=== PATIENT | female | born 1965 | race Caucasian/White ===

== ENCOUNTER 2017-08-09 10:23 | Emergency (ER) | payer OTHER ==
[~2017-08-09] VITALS: Ht 157.5 cm; Wt 88.5 kg
[~2017-08-09 10:23] MED LIST: ALBU90OI6 INH; ALPR.5 PO; AMOX500 PO; ANTACID; ARIP10 PO; ATOR40TA; Ativan1 MG PO; BUPR150ER PO; BUSP10 PO; CEPH500 PO; CIPHYDOTSU OT; CIPR250 PO; CIPR500 PO; CLON.5 PO; CLON1 PO; CLOT1TC TOP; CYCL10 PO; Cipro500 MG PO; Cyclobenzaprine5 MG PO; DICL250 PO; DOXY100 PO; EPINEPHRIN0.3 MG/0.3; ESCI10 PO; ESCI5 PO; FLUC150A PO; FURO20 PO; GABA300 PO; HYDACE10B; HYDACE25S PR; HYDACE5 PO; HYDACE5325 PO; HYDCHL50; HYDCOR2.5C PR; HYDMOR2 PO; HYOS.125 SL; IBUP600 PO; LEVSOD100; LEVSOD100 PO; LEVSOD125 PO; LITH300C PO; LORA1 PO; Lamictal200 MG PO; METH10 PO; Mobic15 MG PO; NAPR220; NAPR500 PO; NEOPOLHCSU OT; Norco 5-325 Ta1 EACH PO; OMEP20ER PO; OXYACE5T PO; OXYC10TA19 PO; PARO20 PO; PERM5TC TOP; PHENA200 PO; POTASSIUM SUPPLEMENT; POTCHL10ER PO; PRAHYD1AE TOP; PROM25; PROM25 PO; PSEU120ER PO; Pantoprazole So40 MG PO; Percocet 5-3251 EACH PO; RANI150; RANI150 PO; RXHYD5325 PO; RXHYDMOR2 PO; RXIBUP800 PO; RXOXYACE PO; STOOL SOFTNER; SULTRIDS PO; TRAZ50 PO; Ultram50 MG PO; Valium5 MG PO; [UNRECOGNIZED DRUG - REMARK]
[2017-08-09 11:06] LABS: BASOPHILS ABSOLUTE AUTO 0.08 K/mm3 (0.00-0.23); BASOPHILS PERCENT AUTO 1 % (0-2); EOSINOPHILS ABSOLUTE AUTO 0.21 K/mm3 (0.00-0.68); EOSINOPHILS PERCENT AUTO 3 % (0-6); Hematocrit 41.8 % (33.0-51.0); Hemoglobin 13.9 g/dL (11.5-16.0); IMMATURE GRAN ABSOLUTE AUTO 0.01 K/mm3 (0.00-0.10); IMMATURE GRAN PERCENT AUTO 0 % (0-1); LYMPHOCYTES ABSOLUTE AUTO 2.83 K/mm3 (0.84-5.20); LYMPHOCYTES PERCENT AUTO 40 % (21-46); MONOCYTES ABSOLUTE AUTO 0.51 K/mm3 (0.16-1.47); MONOCYTES PERCENT AUTO 7 % (4-13); Mean Corpuscular HGB 33.2 pg (26.0-34.0); Mean Corpuscular HGB Conc 33.3 g/dL (31.5-36.5); Mean Corpuscular Volume 100 fL (80-100); Mean Platelet Volume 10.3 fL (9.1-12.4); NEUTROPHILS ABSOLUTE AUTO 3.53 K/mm3 (1.96-9.15); NEUTROPHILS PERCENT AUTO 49 % (41-73); Platelet Count 242 K/mm3 (150-400); RDW Coefficient Variation 12.5 % (11.7-14.2); RDW Standard Deviation 46.1 fL (35.1-46.3); Red Blood Cell Count 4.19 M/mm3 (3.80-5.20); White Blood Cell Count 7.17 K/mm3 (4.00-11.30)
[2017-08-09 11:25] LABS: Alanine Aminotransfer (ALT/SGP 39 U/L (12-78); Albumin, Blood 3.9 g/dL (3.4-5.0); Albumin/Globulin Ratio 1.1 (0.8-1.8); Alk Phos 105 U/L (50-136); Anion Gap 8 mmol/L (6-16); Aspartate Aminotrans (AST/SGOT 24 U/L (12-37); Bilirubin, Total 0.3 mg/dL (0.1-1.0); Blood Urea Nitrogen 16 mg/dL (8-24); Bun/Creatinine Ratio 19.3 (12.0-20.0); CO2, Blood 26 mmol/L (21-32); Calcium, Blood 9.1 mg/dL (8.5-10.1); Chloride, Blood 108 mmol/L (98-108); Creatinine, Blood 0.83 mg/dL (0.40-1.00); Globulin, Blood 3.5 g/dL (2.2-4.0); Glomerular Filtration Rate >60 (60-); Glucose, Blood 93 mg/dL (70-99); Potassium, Blood 4.1 mmol/L (3.5-5.5); Sodium, Blood 142 mmol/L (136-145); Total Protein, Blood 7.4 g/dL (6.4-8.2); Troponin I <0.015 ng/mL (0.000-0.040)
[2017-08-09] MEDS ORDERED: SUCR1 PO (12:37)
== END 2017-08-09 12:46 | disposition home or self-care (01) ==
LOC: ER 10:23
PROVIDERS: Emergency Medicine
DX: R10.13 Epigastric pain (principal); Z87.11 Personal history of peptic ulcer disease; F32.9 Major depressive disorder, single episode, unspecified; F41.9 Anxiety disorder, unspecified; I50.9 Heart failure, unspecified; F17.210 Nicotine dependence, cigarettes, uncomplicated; Z88.2 Allergy status to sulfonamides; Z88.8 Allergy status to other drugs, medicaments and biological substances; Z91.038 Other insect allergy status; Z88.5 Allergy status to narcotic agent; Z79.899 Other long term (current) drug therapy; Z90.49 Acquired absence of other specified parts of digestive tract
CPT/HCPCS: 36415; 71046; 80053; 83690; 84484; 85025; 93005; 93010; 99284

== ENCOUNTER → 2017-10-31 | Outpatient (CLI) | payer OTHER ==
[~2017-10-31] MED LIST changes: +SUCR1 PO
[2017-10-31 18:53] LABS: U Amphetamine Screen Not Detected; U Barbituate Screen Not Detected; U Benzodiazapine Screen Not Detected; U Buprenorphine Screen Not Detected; U Cannabinoids Screen Not Detected; U Cocaine Screen Not Detected; U Methadone Screen Not Detected; U Methamphetamine Screen Not Detected; U Opiates Screen Not Detected; U Oxycodone Screen Not Detected; U Phencyclidine Screen Not Detected; U Propoxyphene Screen Not Detected
== END ==
LOC: LAB 16:00 → LAB SHORT 16:00
PROVIDERS: Psychiatry & Neurology Psychiatry
DX: Z51.81 Encounter for therapeutic drug level monitoring (principal); Z79.899 Other long term (current) drug therapy

== ENCOUNTER 2019-02-18 20:07 | Emergency (ER) | payer OTHER ==
[~2019-02-18] VITALS: Ht 157.5 cm; Wt 90.7 kg
[2019-02-18 21:22] LABS: Source, Urine Clean Catch
[2019-02-18 21:25] LABS: Blood, Urine 5+ (Neg); Glucose Qualitative, Urine Neg (Neg); Ketones, Urine 1+ (Neg); Leukocyte Esterase, Urine 1+ (Neg); Nitrite, Urine Neg (Neg); Protein, Urine 2+ (Neg); Specific Gravity, Urine 1.025 (1.003-1.022); Urobilinogen, Urine 2+ (Normal)
[2019-02-18 21:41] LABS: Appearance, Urine Cloudy (Clear); Bilirubin, Urine 1+ (Neg); Color, Urine Yellow (P-Yellow)
[2019-02-18 21:43] LABS: Bacteria Few /hpf; Calcium Oxalate Crystals Mod /hpf; Red Blood Cells, Urine TNTC /hpf (0-2); Squamous Epithelial Cells Few /hpf (Few)
[2019-02-18 23:17] LABS: BASOPHILS PERCENT AUTO 1 % (0-2); EOSINOPHILS PERCENT AUTO 3 % (0-6); Hematocrit 42.5 % (33.0-51.0); Hemoglobin 14.2 g/dL (11.5-16.0); IMMATURE GRAN ABSOLUTE AUTO 0.02 K/mm3 (0.00-0.10); IMMATURE GRAN PERCENT AUTO 0 % (0-1); LYMPHOCYTES ABSOLUTE AUTO 3.37 K/mm3 (0.84-5.20); LYMPHOCYTES PERCENT AUTO 44 % (21-46); MONOCYTES ABSOLUTE AUTO 0.55 K/mm3 (0.16-1.47); MONOCYTES PERCENT AUTO 7 % (4-13); Mean Corpuscular HGB 33.8 pg (26.0-34.0); Mean Corpuscular HGB Conc 33.4 g/dL (31.5-36.5); Mean Corpuscular Volume 101 fL (80-100); NEUTROPHILS ABSOLUTE AUTO 3.41 K/mm3 (1.96-9.15); NEUTROPHILS PERCENT AUTO 45 % (41-73); Platelet Count 230 K/mm3 (150-400); RDW Coefficient Variation 13.6 % (11.7-14.2); RDW Standard Deviation 51.1 fL (35.1-46.3); White Blood Cell Count 7.65 K/mm3 (4.00-11.30)
[2019-02-18 23:37] LABS: Alanine Aminotransfer (ALT/SGP 28 U/L (12-78); Albumin, Blood 4.2 g/dL (3.4-5.0); Albumin/Globulin Ratio 1.3 (0.8-1.8); Alk Phos 128 U/L (50-136); Anion Gap 9 mmol/L (6-16); Aspartate Aminotrans (AST/SGOT 16 U/L (12-37); Bilirubin, Total 0.3 mg/dL (0.1-1.0); Blood Urea Nitrogen 20 mg/dL (8-24); CO2, Blood 27 mmol/L (21-32); Calcium, Blood 9.3 mg/dL (8.5-10.1); Chloride, Blood 106 mmol/L (98-108); Creatinine, Blood 0.95 mg/dL (0.40-1.00); Globulin, Blood 3.2 g/dL (2.2-4.0); Glomerular Filtration Rate >60 (60-); Glucose, Blood 88 mg/dL (70-99); Potassium, Blood 3.6 mmol/L (3.5-5.5); Sodium, Blood 142 mmol/L (136-145); Total Protein, Blood 7.4 g/dL (6.4-8.2)
== END 2019-02-19 00:03 | disposition home or self-care (01) ==
LOC: ER 20:07
PROVIDERS: Emergency Medicine; Physician Assistant
DX: N20.0 Calculus of kidney (principal); N02.9 Recurrent and persistent hematuria with unspecified morphologic changes; F41.9 Anxiety disorder, unspecified; F32.9 Major depressive disorder, single episode, unspecified; F17.210 Nicotine dependence, cigarettes, uncomplicated; I50.9 Heart failure, unspecified; Z88.2 Allergy status to sulfonamides; Z79.899 Other long term (current) drug therapy
CPT/HCPCS: 36415; 74176; 80053; 81001; 85025; 87086; 99284-25

== ENCOUNTER 2019-06-14 15:36 | Emergency (ER) | payer OTHER ==
[~2019-06-14] VITALS: Ht 157.5 cm; Wt 93.4 kg
[2019-06-14 16:17] LABS: BASOPHILS ABSOLUTE AUTO 0.08 K/mm3 (0.00-0.23); BASOPHILS PERCENT AUTO 1 % (0-2); EOSINOPHILS ABSOLUTE AUTO 0.24 K/mm3 (0.00-0.68); EOSINOPHILS PERCENT AUTO 3 % (0-6); Hematocrit 39.9 % (33.0-51.0); Hemoglobin 13.5 g/dL (11.5-16.0); IMMATURE GRAN ABSOLUTE AUTO 0.02 K/mm3 (0.00-0.10); IMMATURE GRAN PERCENT AUTO 0 % (0-1); LYMPHOCYTES ABSOLUTE AUTO 3.04 K/mm3 (0.84-5.20); LYMPHOCYTES PERCENT AUTO 34 % (21-46); MONOCYTES ABSOLUTE AUTO 0.52 K/mm3 (0.16-1.47); MONOCYTES PERCENT AUTO 6 % (4-13); Mean Corpuscular HGB 35.3 pg (26.0-34.0); Mean Corpuscular HGB Conc 33.8 g/dL (31.5-36.5); Mean Corpuscular Volume 105 fL (80-100); Mean Platelet Volume 10.3 fL (9.1-12.4); NEUTROPHILS ABSOLUTE AUTO 5.13 K/mm3 (1.96-9.15); NEUTROPHILS PERCENT AUTO 57 % (41-73); Platelet Count 246 K/mm3 (150-400); RDW Coefficient Variation 12.4 % (11.7-14.2); RDW Standard Deviation 47.8 fL (35.1-46.3); Red Blood Cell Count 3.82 M/mm3 (3.80-5.20); White Blood Cell Count 9.03 K/mm3 (4.00-11.30)
[2019-06-14 16:45] LABS: Alanine Aminotransfer (ALT/SGP 32 U/L (12-78); Albumin, Blood 4.2 g/dL (3.4-5.0); Albumin/Globulin Ratio 1.2 (0.8-1.8); Alk Phos 125 U/L (50-136); Anion Gap 3 mmol/L (6-16); Aspartate Aminotrans (AST/SGOT 13 U/L (12-37); Bilirubin, Total 0.4 mg/dL (0.1-1.0); Blood Urea Nitrogen 20 mg/dL (8-24); Bun/Creatinine Ratio 16.8 (12.0-20.0); CO2, Blood 27 mmol/L (21-32); Calcium, Blood 9.5 mg/dL (8.5-10.1); Chloride, Blood 109 mmol/L (98-108); Creatinine, Blood 1.19 mg/dL (0.40-1.00); Globulin, Blood 3.4 g/dL (2.2-4.0); Glomerular Filtration Rate 50 (60-); Glucose, Blood 109 mg/dL (70-99); Potassium, Blood 3.4 mmol/L (3.5-5.5); Sodium, Blood 139 mmol/L (136-145); Total Protein, Blood 7.6 g/dL (6.4-8.2); Troponin I <0.015 ng/mL (0.000-0.040)
== END 2019-06-14 18:02 | disposition home or self-care (01) ==
LOC: ER 15:36
PROVIDERS: Physician Assistant
DX: R07.9 Chest pain, unspecified (principal); Z88.2 Allergy status to sulfonamides; Z91.030 Bee allergy status; Z88.8 Allergy status to other drugs, medicaments and biological substances; Z88.6 Allergy status to analgesic agent; Z79.899 Other long term (current) drug therapy; F32.9 Major depressive disorder, single episode, unspecified; D64.9 Anemia, unspecified; I50.9 Heart failure, unspecified; F17.210 Nicotine dependence, cigarettes, uncomplicated
CPT/HCPCS: 36415; 71046; 80053; 83880; 84484; 85025; 93005; 93010; 99284-25

== ENCOUNTER 2019-09-24 09:05 | Emergency (ER) | payer OTHER ==
[~2019-09-24] VITALS: Ht 157.5 cm; Wt 93.4 kg
[~2019-09-24 09:05] MED LIST changes: +LAMO100 PO; -Lamictal200 MG PO
[2019-09-24] MEDS ORDERED: Hydrocodone-Ap1 EA20 PO (09:27)
[2019-09-24] MEDS ORDERED: OMEP20ER PO (09:28)
[2019-09-24] MEDS ORDERED: PROM25 (09:28)
[2019-09-24] MEDS ORDERED: ATOR20 PO (09:28)
[2019-09-24] MEDS ORDERED: BUSP10 PO (09:29)
[2019-09-24] MEDS ORDERED: Voltaren100 GM TOP (10:10)
== END 2019-09-24 10:24 | disposition home or self-care (01) ==
LOC: ER 09:05
DX: M25.562 Pain in left knee (principal); F32.9 Major depressive disorder, single episode, unspecified; F41.9 Anxiety disorder, unspecified; D64.9 Anemia, unspecified; I50.9 Heart failure, unspecified; J44.9 Chronic obstructive pulmonary disease, unspecified; M17.0 Bilateral primary osteoarthritis of knee; F17.210 Nicotine dependence, cigarettes, uncomplicated; Z88.2 Allergy status to sulfonamides; Z88.8 Allergy status to other drugs, medicaments and biological substances; Z91.030 Bee allergy status; Z79.51 Long term (current) use of inhaled steroids; Z79.899 Other long term (current) drug therapy
CPT/HCPCS: 93971; 99283-25

== ENCOUNTER 2020-02-20 09:04 | Emergency (ER) | payer OTHER ==
[~2020-02-20] VITALS: Ht 160 cm; Wt 93.4 kg
[~2020-02-20 09:04] MED LIST changes: +ATOR20 PO; +Hydrocodone-Ap1 EA20 PO; +Voltaren100 GM TOP
[2020-02-20 10:04] LABS: Source, Urine Clean Catch
[2020-02-20 10:19] LABS: Appearance, Urine Hazy (Clear); Bilirubin, Urine Neg (Neg); Blood, Urine 5+ (Neg); Color, Urine Yellow (P-Yellow); Glucose Qualitative, Urine Neg (Neg); Ketones, Urine 1+ (Neg); Leukocyte Esterase, Urine 1+ (Neg); Nitrite, Urine Neg (Neg); Protein, Urine 2+ (Neg); Urobilinogen, Urine 1+ (Normal); pH, Urine 6.5 (5.0-8.0)
[2020-02-20 10:29] LABS: Bacteria Mod /hpf; Calcium Oxalate Crystals Mod /hpf; Red Blood Cells, Urine 50-100 /hpf (0-2); Squamous Epithelial Cells Few /hpf (Few)
[2020-02-20 10:42] LABS: BASOPHILS ABSOLUTE AUTO 0.12 K/mm3 (0.00-0.23); BASOPHILS PERCENT AUTO 1 % (0-2); EOSINOPHILS ABSOLUTE AUTO 0.22 K/mm3 (0.00-0.68); EOSINOPHILS PERCENT AUTO 2 % (0-6); Hemoglobin 14.5 g/dL (11.5-16.0); IMMATURE GRAN ABSOLUTE AUTO 0.03 K/mm3 (0.00-0.10); IMMATURE GRAN PERCENT AUTO 0 % (0-1); LYMPHOCYTES ABSOLUTE AUTO 3.18 K/mm3 (0.84-5.20); LYMPHOCYTES PERCENT AUTO 28 % (21-46); MONOCYTES ABSOLUTE AUTO 0.96 K/mm3 (0.16-1.47); MONOCYTES PERCENT AUTO 8 % (4-13); Mean Corpuscular HGB 33.7 pg (26.0-34.0); Mean Corpuscular Volume 102 fL (80-100); Mean Platelet Volume 10.1 fL (9.1-12.4); NEUTROPHILS ABSOLUTE AUTO 6.99 K/mm3 (1.96-9.15); NEUTROPHILS PERCENT AUTO 61 % (41-73); Platelet Count 228 K/mm3 (150-400); RDW Coefficient Variation 12.6 % (11.7-14.2); RDW Standard Deviation 47.8 fL (35.1-46.3)
[2020-02-20 10:56] LABS: Albumin, Blood 4.2 g/dL (3.4-5.0); Albumin/Globulin Ratio 1.2 (0.8-1.8); Bilirubin, Total 0.6 mg/dL (0.1-1.0); Bun/Creatinine Ratio 16.8 (12.0-20.0); Calcium, Blood 9.9 mg/dL (8.5-10.1); Creatinine, Blood 1.07 mg/dL (0.40-1.00); Globulin, Blood 3.6 g/dL (2.2-4.0); Potassium, Blood 3.9 mmol/L (3.5-5.5); Total Protein, Blood 7.8 g/dL (6.4-8.2)
[2020-02-20] MEDS ORDERED: OXYACE7.5T PO (11:58)
[2020-02-20] MEDS ORDERED: CEFP200 PO (11:58)
== END 2020-02-20 13:43 | disposition home or self-care (01) ==
LOC: ER 09:04
PROVIDERS: Emergency Medicine
DX: N13.2 Hydronephrosis with renal and ureteral calculous obstruction (principal); N39.0 Urinary tract infection, site not specified; Z88.2 Allergy status to sulfonamides; Z91.030 Bee allergy status; Z88.8 Allergy status to other drugs, medicaments and biological substances; Z79.899 Other long term (current) drug therapy; F32.9 Major depressive disorder, single episode, unspecified; F41.9 Anxiety disorder, unspecified; I50.9 Heart failure, unspecified; J44.9 Chronic obstructive pulmonary disease, unspecified; D64.9 Anemia, unspecified; F17.210 Nicotine dependence, cigarettes, uncomplicated
CPT/HCPCS: 36415; 74177; 80053; 81001; 83690; 85025; 87086; 96361-59; 96365-59; 96375-59; 99284-25; J0696; J1170; J1200; J1885; J2405; J3010; J7030; Q9967

== ENCOUNTER 2021-12-02 10:26 | Emergency (ER) | payer OTHER ==
[~2021-12-02] VITALS: Ht 157.5 cm; Wt 95.2 kg
[~2021-12-02 10:26] MED LIST changes: +CEFP200 PO; +OXYACE7.5T PO; +Pyridium100 MG PO
[2021-12-02 11:10] LABS: BASOPHILS ABSOLUTE AUTO 0.08 K/mm3 (0.00-0.23); BASOPHILS PERCENT AUTO 1 % (0-2); EOSINOPHILS ABSOLUTE AUTO 0.15 K/mm3 (0.00-0.68); EOSINOPHILS PERCENT AUTO 2 % (0-6); Hematocrit 44.5 % (33.0-51.0); Hemoglobin 14.7 g/dL (11.5-16.0); IMMATURE GRAN ABSOLUTE AUTO 0.02 K/mm3 (0.00-0.10); IMMATURE GRAN PERCENT AUTO 0 % (0-1); LYMPHOCYTES ABSOLUTE AUTO 1.81 K/mm3 (0.84-5.20); LYMPHOCYTES PERCENT AUTO 24 % (21-46); MONOCYTES ABSOLUTE AUTO 0.73 K/mm3 (0.16-1.47); MONOCYTES PERCENT AUTO 10 % (4-13); Mean Corpuscular HGB 34.6 pg (26.0-34.0); Mean Corpuscular Volume 105 fL (80-100); Mean Platelet Volume 9.8 fL (9.1-12.4); NEUTROPHILS ABSOLUTE AUTO 4.65 K/mm3 (1.96-9.15); NEUTROPHILS PERCENT AUTO 63 % (41-73); Platelet Count 216 K/mm3 (150-400); RDW Coefficient Variation 13.5 % (11.7-14.2); RDW Standard Deviation 52.1 fL (35.1-46.3); Red Blood Cell Count 4.25 M/mm3 (3.80-5.20); White Blood Cell Count 7.44 K/mm3 (4.00-11.30)
[2021-12-02 11:20] LABS: Albumin/Globulin Ratio 1.1 (0.8-1.8); Bilirubin, Total 0.5 mg/dL (0.1-1.0); Bun/Creatinine Ratio 13.7 (12.0-20.0); Calcium, Blood 9.3 mg/dL (8.5-10.1); Creatinine, Blood 0.87 mg/dL (0.40-1.00); Globulin, Blood 3.7 g/dL (2.2-4.0); Total Protein, Blood 7.7 g/dL (6.4-8.2)
[2021-12-02] MEDS ORDERED: Ativan1 MG PO (14:11)
== END 2021-12-02 14:22 | disposition home or self-care (01) ==
LOC: ER 10:26
PROVIDERS: Physician Assistant
DX: R07.9 Chest pain, unspecified (principal); F41.9 Anxiety disorder, unspecified; F32.A Depression, unspecified; F17.210 Nicotine dependence, cigarettes, uncomplicated; I50.9 Heart failure, unspecified; Z79.899 Other long term (current) drug therapy; Z88.2 Allergy status to sulfonamides; Z88.8 Allergy status to other drugs, medicaments and biological substances; Z88.6 Allergy status to analgesic agent; Z91.038 Other insect allergy status; Z91.040 Latex allergy status
CPT/HCPCS: 36415; 71045; 80053; 83690; 84484; 85025; 93005; 93010; 99285-25; A9270

== ENCOUNTER 2023-09-01 17:18 | Emergency (ER) | payer OTHER ==
[~2023-09-01] VITALS: Ht 157.5 cm; Wt 102.5 kg
[2023-09-01 18:51] LABS: BASOPHILS ABSOLUTE AUTO 0.08 K/mm3 (0.00-0.23); BASOPHILS PERCENT AUTO 1 % (0-2); EOSINOPHILS ABSOLUTE AUTO 0.11 K/mm3 (0.00-0.68); EOSINOPHILS PERCENT AUTO 1 % (0-6); Hematocrit 40.4 % (33.0-51.0); Hemoglobin 13.6 g/dL (11.5-16.0); IMMATURE GRAN PERCENT AUTO 1 % (0-1); LYMPHOCYTES ABSOLUTE AUTO 1.63 K/mm3 (0.84-5.20); LYMPHOCYTES PERCENT AUTO 10 % (21-46); MONOCYTES ABSOLUTE AUTO 1.14 K/mm3 (0.16-1.47); MONOCYTES PERCENT AUTO 7 % (4-13); Mean Corpuscular HGB 33.1 pg (26.0-34.0); Mean Corpuscular HGB Conc 33.7 g/dL (31.5-36.5); Mean Corpuscular Volume 98 fL (80-100); Mean Platelet Volume 10.2 fL (9.1-12.4); NEUTROPHILS ABSOLUTE AUTO 14.18 K/mm3 (1.96-9.15); NEUTROPHILS PERCENT AUTO 82 % (41-73); Platelet Count 239 K/mm3 (150-400); RDW Coefficient Variation 14.3 % (11.7-14.2); RDW Standard Deviation 51.7 fL (35.1-46.3); Red Blood Cell Count 4.11 M/mm3 (3.80-5.20); White Blood Cell Count 17.24 K/mm3 (4.00-11.30)
[2023-09-01 19:32] LABS: Albumin, Blood 3.5 g/dL (3.4-5.0); Albumin/Globulin Ratio 0.8 (0.8-1.8); Bilirubin, Total 1.1 mg/dL (0.1-1.0); Bun/Creatinine Ratio 16.9 (12.0-20.0); Calcium, Blood 10.1 mg/dL (8.5-10.1); Creatinine, Blood 0.89 mg/dL (0.40-1.00); Globulin, Blood 4.4 g/dL (2.2-4.0); Potassium, Blood 3.3 mmol/L (3.5-5.5); Total Protein, Blood 7.9 g/dL (6.4-8.2)
[2023-09-01] MEDS ORDERED: Furosemide 10 MG/ML 4ML Vial IV ONE (22:40)
[2023-09-01] MEDS ORDERED: CefTRIAXone Sodium 1,000 MG in NS 50 ML IV ONE (22:45)
[2023-09-01] MEDS ORDERED: CEPH500 PO (22:47)
[2023-09-01] MEDS ORDERED: Potassium Chloride 20 MEQ/15 ML UDC PO ONE (22:50)
[2023-09-02 00:14] VITALS: BP 136/85
== END 2023-09-02 00:15 | disposition home or self-care (01) ==
LOC: ER 17:18
PROVIDERS: Student in an Organized Health Care Education/Training Program
DX: L03.116 Cellulitis of left lower limb (principal); E87.6 Hypokalemia; I89.0 Lymphedema, not elsewhere classified; Z68.41 Body mass index [BMI] 40.0-44.9, adult; I50.9 Heart failure, unspecified; J44.9 Chronic obstructive pulmonary disease, unspecified; D64.9 Anemia, unspecified; F17.210 Nicotine dependence, cigarettes, uncomplicated; Z79.899 Other long term (current) drug therapy; Z88.2 Allergy status to sulfonamides; Z88.8 Allergy status to other drugs, medicaments and biological substances; Z91.030 Bee allergy status
CPT/HCPCS: 80053; 85025; 93971; 96365; 96375; 99284-25; A9270; J0696; J1940

== ENCOUNTER 2024-04-16 06:06 | Inpatient (IN) | payer OTHER ==
[2024-04-16] VITALS (8 sets, daily range): BP systolic 110–137; BP diastolic 68–86
[~2024-04-16] VITALS: Ht 157.5 cm; Wt 108.0 kg
[~2024-04-16 06:06] MED LIST changes: +ANORO ELLIPTA1 EACH INH; +B COMPLEX VITAMIN PO; +Crestor40 MG PO; +LATUDA40 M1 PO; +MELO7.5 PO; +METR500 PO; +NARCAN4 M1 NS; +NITR.4SL SL; +PANT40 PO; +POTA10T PO; +REXULTI1 MG PO; +TERBINAFINE HCL; +VANDAZOLE VG
[2024-04-16] MEDS ORDERED: Verapamil HCL 2.5 MG/ML 2ML Injection ONE (06:26)
[2024-04-16] MEDS ORDERED: NS 1,000 ML IV ONE ×2 (06:27→07:01)
[2024-04-16] MEDS ORDERED: NS 250 ML IV ONE (06:27)
[2024-04-16] MEDS ORDERED: Nitroglycerin 2 MG/20 ML BTL ONE (06:27)
[2024-04-16] MEDS ORDERED: Heparin Sodium 1000 Units/ML 10ML MDV ONE ×2 (06:27→07:01)
[2024-04-16] MEDS ORDERED: Midazolam HCl 1MG / ML 2ML Vial ONE (07:36)
[2024-04-16] MEDS ORDERED: FentaNYL Citrate 50 MCG/ML 2 ML Injection ONE (07:36)
[2024-04-16] MEDS ORDERED: Aspirin 81 MG Chew ONE (07:39)
--- NOTE | 2024-04-16 08:45 | NUR ---
PT BACK TO [facility]OVERY RM WITH R RADIAL TR BAND IN PLACE AND R BRACHIAL SHEATH IN PLACE. NO BLEEDING OR HEMATOMA NOTED. WILLIAM. FRANKLIN. FAMILY AT BEDSIDE. DR. DUFFY AT BEDSIDE DISCUSSING PLAN OF CARE. PT PENDING ADMIT AND TRANSFER FOR CABG.
[2024-04-16] MEDS ORDERED: FLU VACC TS2024-25(6MOS UP)/PF 45 MCG/0.5 ML SYRINGE IM SCH (10:05)
[2024-04-16] MEDS ORDERED: Acetaminophen 325 MG TABLET PO PRN (10:05)
[2024-04-16] MEDS ORDERED: Nitroglycerin 0.4 MG SUBL SL PRN (10:10)
[2024-04-16] MEDS ORDERED: Cyclobenzaprine HCl 10 MG Tab PO PRN (10:10)
[2024-04-16] MEDS ORDERED: Naloxone HCL 4 MG SPRAY (1 UNIT) SCH (10:15)
[2024-04-16] MEDS ORDERED: HYDROcodone 10-APAP 325 TAB PO PRN (10:15)
[2024-04-16] MEDS ORDERED: Nicotine 21 MG PATCH TOP ONE (11:10)
[2024-04-16] MEDS ORDERED: HYDROcodone 10-APAP 325 TAB PO ONE (11:10)
--- NOTE | 2024-04-16 12:02 | NUR ---
TRANSFER CREW HERE FOR TRANSPORT. POWER GLIDE TO L UPPER ARM. R RADIAL TR BAND FULLY DEFLATED. R BRACHIAL SHEATH REMAINS INTACT. NO BLEEDING OR HEMATOMA NOTED. VSS. NADN. PT DENIES NEEDS. PT DC TO [facility] RM 277. [phone]. FULL REPORT TO GOLD [facility]AO WITH [facility].
[2024-04-16] MEDS ORDERED: Omeprazole 20 MG CapCR PO SCH (21:00)
[2024-04-16] MEDS ORDERED: BusPIRone HCl 10 MG Tab PO SCH (21:00)
[2024-04-17] MEDS ORDERED: Rosuvastatin Calcium 10 MG Tab PO SCH (09:00)
[2024-04-17] MEDS ORDERED: LamoTRIgine 100 MG Tab PO SCH (09:00)
[2024-04-17] MEDS ORDERED: Atorvastatin 40 MG Tab PO SCH (09:00)
[2024-04-17] MEDS ORDERED: Levothyroxine Sodium 0.125 MG Tab PO SCH (09:00)
[2024-04-18] MEDS ORDERED: Potassium Chloride 10 Meq Tablet SA PO SCH (09:00)
== END 2024-04-16 20:10 | disposition short-term general hospital (02) | DRG 287 ==
LOC: MHTC 06:06 → SURS 10:03
PROVIDERS: ADMIT Internal Medicine
PROC: 4A023N8 Measurement of Cardiac Sampling and Pressure, Bilateral, Percutaneous Approach (ICD-10-PCS; principal; 2024-04-16)
PROC: B2111ZZ Fluoroscopy of Multiple Coronary Arteries using Low Osmolar Contrast (ICD-10-PCS; 2024-04-16)
DX: I25.10 Atherosclerotic heart disease of native coronary artery without angina pectoris (principal); I50.32 Chronic diastolic (congestive) heart failure; Z68.41 Body mass index [BMI] 40.0-44.9, adult; R79.89 Other specified abnormal findings of blood chemistry; F17.210 Nicotine dependence, cigarettes, uncomplicated; I34.0 Nonrheumatic mitral (valve) insufficiency; E66.9 Obesity, unspecified; I11.0 Hypertensive heart disease with heart failure; E78.1 Pure hyperglyceridemia; F41.9 Anxiety disorder, unspecified; K21.9 Gastro-esophageal reflux disease without esophagitis; I27.21 Secondary pulmonary arterial hypertension; M19.90 Unspecified osteoarthritis, unspecified site; E11.9 Type 2 diabetes mellitus without complications; E03.9 Hypothyroidism, unspecified; J43.9 Emphysema, unspecified; H40.9 Unspecified glaucoma; G43.909 Migraine, unspecified, not intractable, without status migrainosus; Z82.49 Family history of ischemic heart disease and other diseases of the circulatory system; Z79.899 Other long term (current) drug therapy; Z79.890 Hormone replacement therapy; Z91.038 Other insect allergy status; Z91.030 Bee allergy status; Z88.8 Allergy status to other drugs, medicaments and biological substances; Z88.6 Allergy status to analgesic agent; Z88.2 Allergy status to sulfonamides
CPT/HCPCS: 76937; 93456; 99152; 99153; A9270; C1751; C1769; C1887; C1894; J1644; J2250; J3010; J7030; J7050; Q9967

== ENCOUNTER → 2024-05-06 | Outpatient (CLI) | payer OTHER | LOC: LAB SHORT 18:12 → LAB 18:12 | DX: S21.109A Unspecified open wound of unspecified front wall of thorax without penetration into thoracic cavity, initial encounter (principal) | CPT/HCPCS: 87070; 87075; 87205 ==

== ENCOUNTER 2025-04-10 17:19 | Observation (INO) | payer OTHER ==
[~2025-04-10] VITALS: Ht 172.7 cm; Wt 96.3 kg
[2025-04-10] MEDS ORDERED: Lidocaine 4% 1 Patch TOP ONE (17:40)
[2025-04-10] MEDS ORDERED: FentaNYL Citrate 50 MCG/ML 2 ML Injection IV ONE ×2 (17:40→22:00)
[2025-04-10 18:09] LABS: BASOPHILS ABSOLUTE AUTO 0.08 K/mm3 (0.00-0.23); BASOPHILS PERCENT AUTO 1 % (0-2); EOSINOPHILS ABSOLUTE AUTO 0.02 K/mm3 (0.00-0.68); EOSINOPHILS PERCENT AUTO 0 % (0-6); Hematocrit 41.0 % (33.0-51.0); Hemoglobin 13.9 g/dL (11.5-16.0); IMMATURE GRAN ABSOLUTE AUTO 0.03 K/mm3 (0.00-0.10); IMMATURE GRAN PERCENT AUTO 0 % (0-1); LYMPHOCYTES ABSOLUTE AUTO 2.54 K/mm3 (0.84-5.20); LYMPHOCYTES PERCENT AUTO 30 % (21-46); MONOCYTES ABSOLUTE AUTO 0.63 K/mm3 (0.16-1.47); MONOCYTES PERCENT AUTO 8 % (4-13); Mean Corpuscular HGB Conc 33.9 g/dL (31.5-36.5); Mean Corpuscular Volume 103 fL (80-100); NEUTROPHILS ABSOLUTE AUTO 5.12 K/mm3 (1.96-9.15); NEUTROPHILS PERCENT AUTO 61 % (41-73); NRBC ABSOLUTE 0.00 K/mm3 (0.00-0.02); NRBC Auto 0.0 /100 WBC (0.0-0.2); Platelet Count 141 K/mm3 (150-400); RDW Coefficient Variation 14.0 % (11.7-14.2); RDW Standard Deviation 53.7 fL (35.1-46.3)
[2025-04-10 18:33] LABS: Alanine Aminotransfer (ALT/SGP 52.0 U/L (12-78); Albumin, Blood 3.2 g/dL (3.4-5.0); Albumin/Globulin Ratio 1.0 (0.8-1.8); Anion Gap 7.0 mmol/L (3-11); Aspartate Aminotrans (AST/SGOT 46.0 U/L (12-37); Bilirubin, Total 0.9 mg/dL (0.1-1.0); Blood Urea Nitrogen 17.0 mg/dL (8-24); CO2, Blood 25.0 mmol/L (21-32); Calcium, Blood 9.6 mg/dL (8.5-10.1); Chloride, Blood 112.0 mmol/L (98-108); Creatinine, Blood 1.6 mg/dL (0.40-1.00); Globulin, Blood 3.1 g/dL (2.2-4.0); Glucose, Blood 92.0 mg/dL (70-99); Potassium, Blood 4.1 mmol/L (3.5-5.5); Sodium, Blood 140.0 mmol/L (136-145); Total Protein, Blood 6.3 g/dL (6.4-8.2)
[2025-04-10] MEDS ORDERED: FentaNYL Citrate 50 MCG/ML 2 ML Injection IV PRN ×2 (19:25→21:30)
[2025-04-10] MEDS ORDERED: Percocet 5-3251 EACH PO (19:32)
[2025-04-10] MEDS ORDERED: ONDA4ODT MM (19:32)
[2025-04-10] MEDS ORDERED: SENNA LAXATIVE8.6 MG PO (19:32)
[2025-04-10] MEDS ORDERED: POLY500 PO (19:32)
[2025-04-10] MEDS ORDERED: Albuterol 2.5 MG/3 ML VIAL INH PRN (21:25)
[2025-04-10] MEDS ORDERED: FLU VACC TS2025-26(6MOS UP)/PF 45 MCG/0.5 ML SYRINGE IM SCH (21:25)
[2025-04-10] MEDS ORDERED: Ondansetron HCl 2 MG / ML 2ML Vial IV PRN (21:25)
[2025-04-10] MEDS ORDERED: OxyCODONE 5 mg/Acetamin 325 mg TABLET PO PRN (21:30)
[2025-04-10 22:11] VITALS: BP 133/61
[2025-04-10] MEDS ORDERED: Morphine Sulfate 4 MG/1 ML Injection IV PRN (23:50)
[2025-04-11] VITALS (7 sets, daily range): BP systolic 96–121; BP diastolic 58–67
[2025-04-11 01:51] LABS: Hematocrit 40.0 % (33.0-51.0); Hemoglobin 13.4 g/dL (11.5-16.0); Mean Corpuscular HGB Conc 33.5 g/dL (31.5-36.5); Mean Corpuscular Volume 105 fL (80-100); NRBC ABSOLUTE 0.00 K/mm3 (0.00-0.02); NRBC Auto 0.0 /100 WBC (0.0-0.2); Platelet Count 150 K/mm3 (150-400); RDW Coefficient Variation 14.0 % (11.7-14.2); RDW Standard Deviation 54.9 fL (35.1-46.3)
[2025-04-11 01:59] LABS: Anion Gap 5.0 mmol/L (3-11); Blood Urea Nitrogen 17.0 mg/dL (8-24); CO2, Blood 27.0 mmol/L (21-32); Calcium, Blood 9.7 mg/dL (8.5-10.1); Chloride, Blood 111.0 mmol/L (98-108); Creatinine, Blood 1.53 mg/dL (0.40-1.00); Glucose, Blood 116.0 mg/dL (70-99); Potassium, Blood 3.7 mmol/L (3.5-5.5); Sodium, Blood 139.0 mmol/L (136-145)
--- NOTE | 2025-04-11 05:25 | NUR ---
NOC SHIFT SUMMARY PT ARRIVED TO THE UNIT AT 2205 FROM THE ED. PT SLIDE TO PCU BED BY 4 STAFF MEMEBERS. PT ARRIVED IN 04/15 PAIN TO THE L ARM/SHOULDER, PAIN ALSO ON LEFT SIDE OF CHEST UNDER L BREAST. PATIENT WAS MEDICATED UPON ARRIVAL. PT SHIRT HAD TO BE CUT OFF TO ASSESS SKIN AND PLACE HOSPITAL GOWN ON. DURING ADMIT PT STATES SHE LIVES IN A SHED ON SOMEONE [place], SHE HAS NO RUNNING WATER AND ALSO FACES ISSUES WITH OBTAINING FOOD AT TIMES. SHE LIVES WITH A BOYFRIEND OF AROUND 10 YEARS. RESIDENT MD ROUNDED ON PATIENT AND UPDATED PAIN MEDICATIONS, WHICH SEEM TO HAVE BETTER CONTROL. ICE PACKS APPLIED TO THE L ARM/SHOULDER (WHICH IS IN A SLING). POWERGLIDE PLACED TO R ARM BY ELECTRIC WELL LOGGING OPERATOR. TROPONIN TREDED (SEE LABS). CARDIOLOGY CONSULT CALLED IN. PLACED NPO FOR POSSIBLE ANGIO. PT ON TELE SHOWING SR W/ 1ST DEGREE HB. PT STATES CHEST PAIN HAS IMPROVED SINCE PAIN MEDICATION WAS SWITCHED. SHE IS RA SATTING >95%, BREATHING EVEN AND UNLABORED. AFEBRILE. BP WAS SOFTER THIS AM, RECHECK SHOWED STABLE BP (SEE VITALS). PT IS CURRENTLY RESTING IN BED WITH EYES CLOSED, BED IN LOW, CALL LIGHT IN REACH. WILL REPORT TO ONCOMING RN.
[2025-04-11] MEDS ORDERED: Ipratropium/Albuterol SulF 2.5-0.5MG/3 ML Amp INH SCH ×2 (07:05→13:00)
[2025-04-11] MEDS ORDERED: Percocet 10-321 EACH PO (07:37)
[2025-04-11] MEDS ORDERED: Heparin Sodium,Porcine 5,000 UNIT/0.5 ML SDV SC SCH (08:00)
[2025-04-11] MEDS ORDERED: OXYCODONE-ACET1 EAC2 PO (08:11)
[2025-04-11] MEDS ORDERED: METO25 PO (08:19)
[2025-04-11] MEDS ORDERED: AUVELITY ER 451 EACH PO (08:19)
[2025-04-11] MEDS ORDERED: ASPI81CH PO (08:20)
[2025-04-11] MEDS ORDERED: FAMO40 PO (08:20)
[2025-04-11] MEDS ORDERED: EUTHYROX125 MCG PO (08:24)
--- NOTE | 2025-04-11 08:30 | NUR ---
ASSUMPTION OF CARE ASSUMED CARE OF PT AT APPROXIMATELY 1900. PT UP IN CHAIR WITH PILLOW SUPPORT AND LEGS ELEVATED. PT STATING PAIN IS INCREASED AGAIN. PAIN MANAGED WITH MEDICATION PER EMAR. VSS. LEFT ARM IN SLING. BRUISING NOTED TO LEFT LOWER LEG. PT STATES IT WAS AN INJURY SHE SUSTAINED FROM HER FALL. PICTURES TAKEN AND ADDED TO CHART. PT RESTING IN CHAIR AND ABLE TO MAKE ALL NEEDS KNOWN. CALL LIGHT WITHIN REACH AND PT ABLE TO CALL APPROPRIATELY FOR ASSISTANCE. NO C/O CHEST PAIN/PRESSURE. NO C/O SOB.
[2025-04-11] MEDS ORDERED: Lidocaine 2% Viscous Soln 20 ML,Nystatin 100,000 Unit/ml Susp 20 ML,Mag Hydrox/Al Hydro... MT PRN (09:55)
[2025-04-11] MEDS ORDERED: HYDROcodone 10-APAP 325 TAB PO PRN (10:00)
--- NOTE | 2025-04-11 15:05 | NUR ---
CONTACTED PROVIDER REGARDING CONCERNS FOR APPROPRIATE PAIN CONTROL WITH CURRENT ANALGESIC REGIMEN. PATIENT CONTINUES TO REPORT MODERATE TO SEVERE LEVELS OF PAIN WITH BOTH PHARMACOLOGICAL AND NONPHARMACOLOGICAL INTERVENTION. PER PROVIDER, PATIENT UNABLE TO MEET GOAL OF DISCHARGE TODAY WHILE ON IV ANALGESIC. THIS RN REASSESSED PATIENT GOALS OF CARE WITH PROVIDER IN ROOM.
[2025-04-11] MEDS ORDERED: OxyCODONE 10/Acetamin 325 TABLET PO PRN (15:15)
--- NOTE | 2025-04-11 16:31 | NUR ---
SHIFT SUMMARY PATIENT IS ALERT AND ORIENTED, ABLE TO FOLLOW COMMANDS AND MAKE NEEDS KNOWN, ANSWERS ALL QUESTIONS APPRIOPRIATELY. VSS, TELE IN PLACE, SINUS 60'S, PATIENT DENIES PRESENCE OF CHEST PAIN OR PRESSURE. SPO2 >90% ON RA. PATIENT REPORTING MODERATE TO SEVERE PAIN IN LEFT ARM CONSISTENT WITH LEFT HUMERUS FRACTURE. PHARMACOLOGICAL AND NONPHARMACOLOGICAL METHODS USED FOR PAIN MANAGEMENT. PATIENT DENIES PRESENCE OF N/V/D. ORTHO CONSULT AND CT DONE TODAY, SEE NOTES FOR FURTHER INFORMATION. PATIENT IS A 1-2 PERSON ASSIST TO THE CHAIR. PATIENT UP IN CHAIR, CALL LIGHT WITHIN REACH.
[2025-04-12 00:11] VITALS: BP 124/65
[2025-04-12 03:12] VITALS: BP 115/63
--- NOTE | 2025-04-12 05:36 | NUR ---
SHIFT SUMMARY PT PAIN MANAGED WITH MEDICATIONS PER EMAR. PT REPOSITIONED Q2H TO PREVENT SACRAL INJURY, PROPHYLACTIC MEPILEX IN PLACE. LEFT VILLEGAS ECCYMOTIC WITH SWELLING, IMAGES IN CHART. VSS. NO C/O CHEST PAIN OR PRESSURE. NO C/O SOB. LEFT ARM IN SLING THIS SHIFT, ELEVATED WITH PILLOWS, ALTERNATING HEAT/ICE. MOBILITY: 2 PERSON ASSIST TO BSC. PT UP TO BSC TO VOID.
[2025-04-12 07:16] VITALS: BP 114/64
[2025-04-12 07:27] LABS: BASOPHILS ABSOLUTE AUTO 0.05 K/mm3 (0.00-0.23); BASOPHILS PERCENT AUTO 1 % (0-2); EOSINOPHILS ABSOLUTE AUTO 0.06 K/mm3 (0.00-0.68); EOSINOPHILS PERCENT AUTO 1 % (0-6); Hematocrit 36.2 % (33.0-51.0); Hemoglobin 11.9 g/dL (11.5-16.0); IMMATURE GRAN ABSOLUTE AUTO 0.01 K/mm3 (0.00-0.10); IMMATURE GRAN PERCENT AUTO 0 % (0-1); LYMPHOCYTES ABSOLUTE AUTO 2.68 K/mm3 (0.84-5.20); LYMPHOCYTES PERCENT AUTO 36 % (21-46); MONOCYTES ABSOLUTE AUTO 0.90 K/mm3 (0.16-1.47); MONOCYTES PERCENT AUTO 12 % (4-13); Mean Corpuscular HGB Conc 32.9 g/dL (31.5-36.5); Mean Corpuscular Volume 106 fL (80-100); NEUTROPHILS ABSOLUTE AUTO 3.69 K/mm3 (1.96-9.15); NEUTROPHILS PERCENT AUTO 50 % (41-73); NRBC ABSOLUTE 0.00 K/mm3 (0.00-0.02); NRBC Auto 0.0 /100 WBC (0.0-0.2); Platelet Count 132 K/mm3 (150-400); RDW Coefficient Variation 14.2 % (11.7-14.2); RDW Standard Deviation 55.4 fL (35.1-46.3)
[2025-04-12 07:40] LABS: Anion Gap 5.0 mmol/L (3-11); Blood Urea Nitrogen 18.0 mg/dL (8-24); CO2, Blood 29.0 mmol/L (21-32); Calcium, Blood 9.3 mg/dL (8.5-10.1); Chloride, Blood 108.0 mmol/L (98-108); Creatinine, Blood 1.68 mg/dL (0.40-1.00); Glucose, Blood 112.0 mg/dL (70-99); Potassium, Blood 3.5 mmol/L (3.5-5.5); Sodium, Blood 138.0 mmol/L (136-145)
[2025-04-12 12:50] VITALS: BP 109/60
[2025-04-12 15:51] VITALS: BP 112/62
--- NOTE | 2025-04-12 16:26 | NUR ---
Discharge Home Pt A&O x4. VSS. Spo2 > 92% on RA. Monitor showing SR. Pt c/o L shoulder & back pain. Pt left arm in sling. Pt medicated per emar/pt request w/ pt report of improvement. Pt reports feeling ready for discharge home & states has help at home if needed. Discharge instructions reviewed w/ pt & sent home w/ pt. Powerglide removed WNL. Pt taken out in wheelchair w/ belongings @ approx 1620.
== END 2025-04-12 16:30 | disposition home health service (06) ==
LOC: ER 17:19 → PCU 17:20 → MEDS 17:20 → PCU 22:04
PROVIDERS: Emergency Medicine; Nurse Practitioner Acute Care; ADMIT Student in an Organized Health Care Education/Training Program
DX: S29.9XXA Unspecified injury of thorax, initial encounter (principal); S42.212A Unspecified displaced fracture of surgical neck of left humerus, initial encounter for closed fracture; S42.252A Displaced fracture of greater tuberosity of left humerus, initial encounter for closed fracture; W01.0XXA Fall on same level from slipping, tripping and stumbling without subsequent striking against object, initial encounter; I50.30 Unspecified diastolic (congestive) heart failure; J44.9 Chronic obstructive pulmonary disease, unspecified; I13.0 Hypertensive heart and chronic kidney disease with heart failure and stage 1 through stage 4 chronic kidney disease, or unspecified chronic kidney disease; F17.210 Nicotine dependence, cigarettes, uncomplicated; E78.1 Pure hyperglyceridemia; I25.10 Atherosclerotic heart disease of native coronary artery without angina pectoris; N18.30 Chronic kidney disease, stage 3 unspecified; E03.9 Hypothyroidism, unspecified; K21.9 Gastro-esophageal reflux disease without esophagitis; Z88.2 Allergy status to sulfonamides; Z91.038 Other insect allergy status; Z88.8 Allergy status to other drugs, medicaments and biological substances; Z79.890 Hormone replacement therapy; Z79.899 Other long term (current) drug therapy
CPT/HCPCS: 36415; 70450; 71045; 73060; 73200; 76377; 80048; 80053; 84484; 85025; 85027; 93005; 93010; 93306; 94640; 94760; 94762; 96372; 96374; 96375; 96376; 97110; 97116; 97161; 97165; 97530; 99285-25; A9270; G0378; J1644; J2270; J3010